=== PATIENT | female | born 1995 | race African-American/Black ===

== ENCOUNTER → 2025-01-28 10:42 | Outpatient (BNVA) | payer OTHER, SELFPAY | PROVIDERS: Visit Provider Physician Assistant Medical | DX: M24.812 Other specific joint derangements of left shoulder, not elsewhere classified (principal); S43.52XA Sprain of left acromioclavicular joint, initial encounter; S46.812A Strain of other muscles, fascia and tendons at shoulder and upper arm level, left arm, initial encounter; M54.12 Radiculopathy, cervical region; X50.0XXA Overexertion from strenuous movement or load, initial encounter | CPT/HCPCS: 73030; 99203 ==

== ENCOUNTER → 2025-01-31 10:06 | Outpatient (BNVA) | payer OTHER, SELFPAY | PROVIDERS: Visit Provider Physician Assistant Medical | DX: M24.812 Other specific joint derangements of left shoulder, not elsewhere classified (principal); S43.52XD Sprain of left acromioclavicular joint, subsequent encounter; S46.812D Strain of other muscles, fascia and tendons at shoulder and upper arm level, left arm, subsequent encounter; M54.12 Radiculopathy, cervical region; X50.0XXD Overexertion from strenuous movement or load, subsequent encounter | CPT/HCPCS: 99213 ==

== ENCOUNTER → 2025-02-05 13:22 | Outpatient (BNVA) | payer OTHER, SELFPAY | PROVIDERS: Visit Provider Physician Assistant Medical | DX: M25.812 Other specified joint disorders, left shoulder (principal); S43.52XA Sprain of left acromioclavicular joint, initial encounter; S46.812A Strain of other muscles, fascia and tendons at shoulder and upper arm level, left arm, initial encounter; M54.12 Radiculopathy, cervical region; X50.0XXA Overexertion from strenuous movement or load, initial encounter | CPT/HCPCS: 99213 ==

== ENCOUNTER → 2025-02-12 15:51 | Outpatient (BNVA) | payer OTHER, SELFPAY | PROVIDERS: Visit Provider Physician Assistant Medical | DX: M24.812 Other specific joint derangements of left shoulder, not elsewhere classified (principal); S43.52XA Sprain of left acromioclavicular joint, initial encounter; S46.812A Strain of other muscles, fascia and tendons at shoulder and upper arm level, left arm, initial encounter; M54.12 Radiculopathy, cervical region; X50.0XXA Overexertion from strenuous movement or load, initial encounter | CPT/HCPCS: 99213 ==

== ENCOUNTER → 2025-02-28 09:51 | Outpatient (BNVA) | payer OTHER, SELFPAY | PROVIDERS: Visit Provider Physician Assistant Medical | DX: M24.812 Other specific joint derangements of left shoulder, not elsewhere classified (principal); S43.82XD Sprain of other specified parts of left shoulder girdle, subsequent encounter; S46.812D Strain of other muscles, fascia and tendons at shoulder and upper arm level, left arm, subsequent encounter; X50.0XXD Overexertion from strenuous movement or load, subsequent encounter; M54.12 Radiculopathy, cervical region | CPT/HCPCS: 99213 ==

== ENCOUNTER 2025-03-20 19:49 | Outpatient (REF) | payer OTHER, SELFPAY ==
--- NOTE | ~2025-03-20 | MR_ITS ---
CLINICAL HISTORY: derangement lt ac sprain MR left shoulder without gadolinium Comparison: CR/SR - XR SHOULDER 2 OR MORE VIEWS LEFT - 01/28/25 11:48 EDT Findings: No acute fracture or pathologic bone lesion. No significant degenerative changes. No joint effusion. The rotator cuff tendons are intact. No tears of the long head of biceps tendon. Glenoid labrum is intact. IMPRESSION: Unremarkable left shoulder MRI. This document has been electronically signed by: Emmanuel Ferguson MD on 03/22/2025 18:10:49
--- OUTSIDE RECORDS SUMMARY | 2025-03-20 19:57 | XMS_ITS ---
Author Name [facility] Organization Unknown History of Medication Use Medication Directions Dispensed Refills Start Date End Date Stat us Wegovy 0.25 mg/0.5 mL subcutaneous pen injector Inject 0.25 mg every week by subcutaneous route. 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
== END 2025-03-20 19:50 | disposition home or self-care (01) ==
LOC: HO.MRI 19:49
PROVIDERS: Visit Provider Internal Medicine
DX: M24.812 Other specific joint derangements of left shoulder, not elsewhere classified (principal)
CPT/HCPCS: 73221

== ENCOUNTER → 2025-03-20 20:20 | Outpatient (BNV) | payer OTHER, SELFPAY | PROVIDERS: Visit Provider Radiology Diagnostic Radiology | DX: S43.52XD Sprain of left acromioclavicular joint, subsequent encounter (principal) | CPT/HCPCS: 73221 ==

== ENCOUNTER 2025-03-27 11:05 | Outpatient (REF) | payer OTHER, SELFPAY ==
[2025-03-27 14:08] LABS: Hematocrit 41.6 % (37.0-47.0); Hemoglobin 13.4 g/dl (12.0-16.0); Mean Corpuscular HGB Conc 32.2 g/dl (31.0-35.0); Mean Corpuscular Hemoglobin 26.2 pg (27.0-33.0); Mean Corpuscular Volume 81.3 fL (80.0-98.0); NRBC Abs Auto 0.000 X10*3/uL (0.0-0.012); NRBC Pct Auto 0.0 /100WBC (0.0-0.2); Platelet Count 246 X10*3/uL (160-400); Red Blood Count 5.12 X10*6/uL (4.20-5.50); White Blood Count 8.1 X10*3/uL (4.8-10.8)
[2025-03-27 14:40] LABS: Alanine Aminotransferase 19 U/L (0-31); Albumin Level 4.1 g/dL (3.5-5.0); Alkaline Phosphatase 64 U/L (39-117); Anion Gap 10 (12-20); Aspartate Amino Transferase 37 U/L (5-31); Blood Urea Nitrogen 19 mg/dL (9-16); Calcium 9.4 mg/dL (8.4-10.2); Carbon Dioxide 27 mmol/L (22-29); Chloride 106 mmol/L (96-108); Cholesterol 211 mg/dL (<200); Estimated Glomerular Filt Rate > 60; HDL Cholesterol 65 mg/dL (>40); Potassium 3.7 mmol/L (3.3-5.1); Sodium 139 mmol/L (135-145); Total Protein 7.5 g/dL (6.5-8.0); Triglycerides 66 mg/dL (<150)
[2025-03-27 14:42] LABS: Microalbum/Creatinine Ratio Ur 19.7 ug/mg cr (<30)
[2025-03-27 15:03] LABS: Folate 8.1 ng/mL (> or = 4.0); Vitamin B12 714 pg/mL (200-900)
== END 2025-03-27 11:06 | disposition home or self-care (01) ==
LOC: HO.WFDLDS 11:05
PROVIDERS: PCP Nurse Practitioner Family; Visit Provider Nurse Practitioner Family
DX: Z00.00 Encounter for general adult medical examination without abnormal findings (principal); Z76.89 Persons encountering health services in other specified circumstances; J45.20 Mild intermittent asthma, uncomplicated; E66.9 Obesity, unspecified; L30.9 Dermatitis, unspecified; N91.3 Primary oligomenorrhea; Z80.3 Family history of malignant neoplasm of breast; Z83.3 Family history of diabetes mellitus; Z92.89 Personal history of other medical treatment; Z68.34 Body mass index [BMI] 34.0-34.9, adult
CPT/HCPCS: 36415; 80053; 80061; 82043; 82306; 82570; 82607; 82746; 83036; 84443; 85027; 96127; 96160

== ENCOUNTER 2025-03-27 11:05 | Outpatient (AMB) | payer OTHER, SELFPAY ==
--- NOTE | 2025-03-27 11:07 | A.OFFPC_ITS ---
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 Patient is requesting a referral to a air filler. Patient has irregular periods and want to discuss about the issue. Grill Cook Required: No Is last menstrual period known: Yes Last menstrual period: 04/23/25 Allergies propylene glycol Allergy (Severe, Verified 03/27/25 11:14) Itching Medication List - Last Reviewed 03/27/25 by Raúl Alejo MA diclofenac sodium 1% 2 grams topical TID dupilumab (Dupixent) mg subcut ipratropium-albuterol 0.5 mg-3 mg(2.5 mg base)/3 mL mL inhalation Tobacco use date assessed: 03/27/25 Dental Screening Dental Screen Date: 03/27/25 Did you have a dental visit in the last 12 months?: Yes Did you have a dental problem in the last 6 months where you did not have access to dental care?: No Was dental information given to patient?: Patient has dentist HPI HPI Comments History of Present Illness Details 29 y/o F with obesity, eczema, fhx breas t (mom age 62), asthma , fhx DM, 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 No children. Denies hx of cancer in grandparents; MGF DM, PGM DM. 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 Darker blood Was on Naproxen but did not notice any improvement No chance of HOme preg test negative x 2 Not on OCP Active w/ [employer]; next appt June 2025. Advised to call [employer] to get see sooner to address the above BMI 34. Wants to meet w/ air filler Eczema: - Long-standing condition; treated with Dupixent effectively. - Under care of a senior technical program manager. Asthma: - Well-controlled using albuterol. Family History - Mother diagnosed with breast cancer tw o years ago; non-genetic. - Great aunt (maternal side) had breast cancer. - Father has diabetes. - Paternal grandmother has diabetes. 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 - Recently moved from [place] to [facility] for job purposes. - Reports stress related to shoulder inj ury and employment status. - Nutritional intake: Concerned about ov ereating; expresses desire for dietary consultation for weight management. - Not currently using contraceptives tho ug aware of risk. Health Maintenance - Flu vaccination received last week at [facility]. - Tetanus vaccination: Administered appr oximately two years ago. - Participates in using ear protection a t concerts and while flying. Review of Systems - Skin: Reports well-managed eczema. - Respiratory: Denies nocturnal asthma s ymptoms. - Reproductive: Reports irregular menstr ual cycle with nausea, vomiting, dark and spotty bleeding. - Musculoskeletal: Reports healing left shoulder injury. - Nutrition: Concern over weight gain an d dietary habits. Physical Exam General: Well developed, well nourished, in no acute distress. Appears stated age. Head: Normocephalic, atraumatic. Eyes: Pupils are equal, round and reactive to light and accommodation. Conjunctivae are clear. Scleras nonicteric bilat. Vision grossly normal. Ears: TMs clear AU, EACS WNL. Patient reports protecting ears at concerts and on planes. Nose: Patent, without discharge. Neck: No carotid bruit bilat. Supple, no adenopathy or thyromegaly. No pain or tenderness when swallowing. Breast: Edu on SBE. Patient reports previous ultrasound due to symptoms related to menstrual cycle. Lungs: Clear to auscultation bilaterally. No rales, rhonchi or wheeze noted. Good air flow in all romero. Heart: Regular rate and rhythm. No murmurs, click, rubs or gallops are noted. Abdomen: Bowel sounds present in all quadrants. The abdomen is soft, nontender, with no masses or organomegaly noted. No hernias are noted. Reports cramping but no pain. : Deferred. Reviewed recommendations for routine [employer]. Patient reports irregular menstrual cycle and previous [employer] visit. Pulses: Peripheral pulses are equal and palpable bilaterally. Extremities: No clubbing, cyanosis nor edema is noted. Neurologic: Gait and station normal. Cranial Nerves 2-12 intact. Motor strength grossly symmetrical and intact. No sensory loss. Balance normal. Skin: No rashes, ulcers, or lesions noted. Turgor is good. Skin color is good. Hair and nails are without abnormalities. Patient has a history of eczema, managed with Dupixent. Psych: Normal eye contact, affect and mood appropriate, and normal interactions. Patient is alert and appropriate to context. Reports stress related to work and health issues. Results Pending Discussion Notes During today's visit, we reviewed the patient's current management plan for eczema, which is under control with Dupixent as prescribed by her senior technical program manager. We discussed her irregular menstrual bleeding pattern, with reassurance and advice to contact her [employer] to expedite an appointment. The patient expressed concerns regarding her weight and was referred to a supervisor gluing for nutritional guidance. The patient's asthma is managed well with albuterol for emergency use. Additionally, we discussed her left shoulder injury and its impact on her work, agreeing to ongoing rehabilitation and monitoring of her recovery. Consent for A1c testing was discussed and obtained, and the patient was instructed to follow up as necessary using the patient portal for any issues or changes in symptoms. Patient was given time to ask questions. All questions were answered to their satisfaction. Assessment and Plan 1. Eczema - Continue Dupixent. 2. Abnormal Menstrual Bleeding - Contact [employer] for evaluation. 3. Asthma - Refilled albuterol; continue use. 4. Obesity - Refer to supervisor gluing. 5. Left Shoulder Injury - Monitor recovery. 6. HM labs today. UTD on vaccines Patient Instructions - Use albuterol inhaler as needed for as thma symptoms. - Continue treatment for eczema as presc ribed by your senior technical program manager. - Contact your [employer] to schedule an ear lier appointment for menstrual concerns. - Attend nutritional consultation when c ontacted by supervisor gluing. - Monitor recovery progress of shoulder injury and avoid strenuous activities. - Reach out through the patient portal f or any concerns or changes in symptoms. - RTO 1 year CPE sooner as needed. Consent Patient was informed and verbally consented to the use of an ambient scribe for clinic note documentation during this visit. An additional 20 minutes was spent addressing the problem(s) noted at todays visit. This includes time spent before the visit reviewing the chart, time spent during the visit, and time spent after the visit on documentation reviewing laboratory results, diagnostic imaging, medications, performing a medically necessary evaluation, counseling on diagnoses, care coordination, ordering appropriate tests, ordering appropriate medications, review of tests performed by other providers, reporting test results with the patient, communication with other healthcare providers. [facility] Medical History (Updated 03/27/25 @ 11:47 by Shakira Chadwick [facility]) Asthma Eczema Surgical History (Updated 03/27/25 @ 11:20 by Raúl Alejo MA) No pertinent past surgical history Family History (Updated 03/27/25 @ 11:21 by Raúl Alejo MA) Father Diabetes Paternal Grandmother Diabetes Maternal Grandfather Diabetes Mother Breast cancer Social History (Updated 03/27/25 @ 11:19 by Raúl Alejo MA) Household Members: Significant Other Both parents involved: No Caregiver staying overnight: No Housing: Apartment Are you a primary child daycare worker to a significant other at home: No Do you presently have visiting nurse or other home services: No 75 years or older and lives alone: No Alcohol intake: current Alcohol intake frequency: a few times a month Patient Tobacco Use Status: Never used Tobacco e-Cigarette/Vaping Use: Never Used Second Hand Smoke Exposure: No service: No Current occupational status: employed Current occupation: medical insurance biller assistant professor sculpture Cognitive needs: No Hearing needs: No Vision needs: No Female Reproductive History Menstrual Date of last menstrual period: 04/23/25 Questionnaire PHQ-9 Over the last 2 weeks, how often have you been bothered by any of the following problems? 1. Little interest or pleasure in doing things: not at all 2. Feeling down, depressed, or hopeless: not at all 3. Trouble falling or staying asleep, or sleeping too much: not at all 4. Feeling tired or having little energy: not at all 5. Poor appetite or overeating: not at all 6. Feeling bad about yourself - or that you are a failure or have let yourself or your family down: not at all 7. Trouble concentrating on things, such as reading the newspaper or watching television: not at all 8. Moving or speaking so slowly that other people could have noticed. Or the opposite - being so fidgety or restless that you have been moving around a lot more than usual: not at all 9. Thoughts that you would be better off or of hurting yourself in some way: not at all Total score: 0 Depression Screening Interpretation: Negative Depression Screening Done: Yes 35797 - PHQ-9 Billing: Yes Source: Developed by Drs. Tarun Ma, Blanca Milina, Jose Moreno and colleagues, with an educational lucian from [employer]. Thrive Questionnaire Date Thrive assessed: 03/27/25 I am a: Patient What is your living situation today?: I have a steady place to live Within the past 12 months, did the food you bought not last and you didn't have the money to get more?: Never true Within the past 12 months, did you worry whether your food would run out before you got money to buy more?: Never true Do you have trouble paying for medicines?: I choose not to answer this question Do you have trouble getting transportation to medical appointments?: No Do you have trouble paying your heating and electricity bill?: I choose not to answer this question Do you have trouble taking care of your child, family member or friend?: No Do you have trouble with day-to-day activities such as bathing, preparing meals, shopping, managing finances, etc.?: No Are you currently unemployed and looking for a job?: No Are you interested in more education?: I choose not to answer this question Please select the resources that you would like help with: None Currently or been in a relationship where the following occur: No concerns reported THRIVE Score: 0 AUDIT C Alcohol Use Questionnaire (AUDIT-C) 1. How often do you have a drink containing alcohol?: Monthly or less 2. How many drinks containing alcohol do you have on a typical day when you are drinking?: 1 or 2 3. How often do you have six or more drinks on one occasion?: Never Total Score: 1 Score Reviewed/Action Taken: Yes KOURTNEY-7 AMB Questionnaire KOURTNEY-7 Date KOURTNEY - 7 assessed: 03/27/25 Feeling nervous, anxious, or on edge: 1 = Several days Not being able to stop or control worryin = Not at all Worrying too much about different things: 1 = Several days Trouble relaxin = Not at all Being so restless that it is hard to sit still: 0 = Not at all Becoming easily annoyed or irritable: 0 = Not at all Feeling afraid as if something awful might happen: 0 = Not at all Total KOURTNEY-7 score (0-4 normal; 5-9 mild; 10-14 moderate; 15-21 severe): 2 Source: Developed by Drs. Tarun Ma, Blanca Milian, Jose Moreno and colleagues, with an educational lucian from [employer]. KOURTNEY-7 Assessment Billing KOURTNEY-7 Assessment Tool: KOURTNEY-7 Assessment 12275 ACT Questionnaire In the past 4 weeks, how much of the time did your asthma keep you from getting as much done at work, school or at home?: None of the time During the past 4 weeks, how often have you had shortness of breath?: Not at all During the past 4 weeks, how often did your asthma symptoms wake you up at night or earlier than usual in the morning?: Not at all During the past 4 weeks, how often have you had to use your rescue inhaler or nebulizer medication?: Not at all How would you rate your asthma control during the past 4 weeks?: Completely controlled ACT Interpretation: Negative Score: 25 Physical exam (Primary Care) Vital Signs: Last Vital Signs Temp 97.8 F 03/27/25 11:16 Pulse 78 03/27/25 11:16 Resp 12 03/27/25 11:16 BP 107/67 03/27/25 11:16 Pulse Ox 98 03/27/25 11:16 Oxygen Delivery Method Room Air 03/27/25 11:16 BMI result Body Mass Index 34.0 Tobacco/Smoking Status: Tobacco use Status Tobacco use date assessed 03/27/25 03/27/25 11:10 Patient Tobacco Use Status Never used Tobacco 03/27/25 11:19 e-Cigarette/Vaping Use Never Used 03/27/25 11:19 PHQ-9: PHQ-9 Score PHQ-9: Total score 0 03/27/25 11:10 Depression Screening Interpretation: Negative Thrive Assessment: Date of Thrive Assessment Date Thrive assessed 03/27/25 03/27/25 11:10 Currently or been in a relationship where the following occur: No concerns reported Coding Level of Care Code New Pt Level 3 (59317) New Pt Prev Care 18-39yr(02033 Diagnoses Encounter to establish care with new provider Z76.89 Mild intermittent asthma in adult without complication J45.20 Obesity (BMI 30-39.9) E66.9 Eczema L30.9 Family history of breast cancer Z80.3 Family history of diabetes mellitus Z83.3 History of Papanicolaou smear of cervix Z92.89 Laboratory exam ordered as part of routine general medical examination Z00.00 Encounter for general adult medical examination without abnormal findings Z00.00 Primary oligomenorrhea N91.3 Oligomenorrhea type: primary Additional Codes KOURTNEY-7 Assessment Billing - KOURTNEY-7 Assessment Tool: KOURTNEY-7 Assessment 37159 ([id number]) PHQ-9 - 93241 - PHQ-9 Billing: Yes ([id number]) Asthma Control Questionnaire - ACT Interpretation: Negative ([id number]) Assessment & Plan Assessment & Plan (1) Encounter to establish care with new provider: Code(s): Z76.89 - Persons encountering health services in other specified circumstances (2) Mild intermittent asthma in adult without complication: Code(s): J45.20 - Mild intermittent asthma, uncomplicated Category: Medical (3) Obesity (BMI 30-39.9): Code(s): E66.9 - Obesity, unspecified Category: Medical (4) Eczema: Code(s): L30.9 - Dermatitis, unspecified Category: Medical (5) Family history of breast cancer: Comment: Mom and Maternal aunt Code(s): Z80.3 - Family history of malignant neoplasm of breast Category: Medical (6) Family history of diabetes mellitus: Code(s): Z83.3 - Family history of diabetes mellitus Category: Medical (7) History of Papanicolaou smear of cervix: Onset Date: ~2023 Code(s): Z92.89 - Personal history of other medical treatment Category: Medical (8) Laboratory exam ordered as part of routine general medical examination: Code(s): Z00.00 - Encounter for general adult medical examination without abnormal findings Category: Medical (9) Encounter for general adult medical examination without abnormal findings: Onset Date: ~03/27/25 Code(s): Z00.00 - Encounter for general adult medical examination without abnormal findings Category: Medical (10) Oligomenorrhea: Code(s): N91.5 - Oligomenorrhea, unspecified Category: Medical Qualifiers: Oligomenorrhea type: primary Qualified Code(s): N91.3 - Primary oligomenorrhea Plan . Orders: Orders Microalbumin, Random (w Creat) Today Z00.00 - Encounter for general adult medical examination without abnormal findings TSH reflex Free T4 Today Z00.00 - Encounter for general adult medical examination without abnormal findings Vitamin B12 and Folate Today Z00.00 - Encounter for general adult medical examination without abnormal findings Vitamin D 25-OH Total Today Z00.00 - Encounter for general adult medical examination without abnormal findings Complete Blood Count no Diff Today Z00.00 - Encounter for general adult medical examination without abnormal findings Comprehensive Met. Panel Today Z00.00 - Encounter for general adult medical examination without abnormal findings Hemoglobin A1c Today Z00.00 - Encounter for general adult medical examination without abnormal findings Lipid Panel Today Z00.00 - Encounter for general adult medical examination without abnormal findings Referrals Casket Liner Nutrition Referral E66.9 - Obesity, unspecified Medications: New albuterol sulfate 90 mcg/actuation 2 puffs inhalation Q4-6H PRN 8.5 grams 0RF shortness of breath or wheezing 30 days Patient Instructions: Walk-In Care (Urgent Care): We Make it Easy Walk-in for urgent medical issues such as: ? Seasonal Allergies ? Insect Bites ? Cough ? Diarrhea ? Acute Asthma Attacks ? Back, Knee or Joint Pain ? Ear Infection ? Fever without a Rash ? Headaches ? Nausea ? [place] [facility], Rash or Skin Irritation ? Sore Throat ? Sports Physicals ? Vomiting Most insurances are accepted. Patients do not need to be part of the [facility] to seek care at the walk-in clinic. Locations [address], [place] Open Tuesday through Tuesday 8am-5pm *Hours may vary due to staffing availability. To confirm Walk-In Care hours please call. [facility] [address], [place] [address] ? [phone] [facility] Walk-In Care in [place] provides services to ages 18 and over. Open Tuesday-Tuesday: 7 a.m. to 5 p.m. and Tuesday: 9 a.m. to 3 p.m.* *Hours may vary due to staffing availability. To confirm Walk-In Care hours in [place], please call [phone]. [address] [place] [address] ? [phone] [facility] Walk-In Care in [place] provides services to ages 12 and over. Open Tuesday-Tuesday: 8 a.m. to 5 p.m. Hours may vary due to staffing availability. To confirm Walk-In Care hours in [place], please call [phone]. LABORATORY SERVICES: [facility] ? Primary Location [address] [place] [address] Tuesday through Tuesday 6:00 AM ? 5:00 PM Tuesday 7:00 AM ? 11:00 AM* [phone] The [facility] is centrally located near the front entrance of the [facility] for easy outpatient access. Convenient parking is provided for outpatients. *Hours may vary due to staffing availability. To confirm Laboratory hours for any location, please call [phone]. Offsite Location For your convenience, we offer offsite laboratory draw stations at the following locations: [address] [place] [address] ? [address], [address] Tuesday through Tuesday 7:30 AM ? 1:00 PM* [phone] *Hours may vary due to staffing availability. To confirm Laboratory hours for any location, please call [phone]. [place] ? [address] Tuesday through Tuesday 6:00 AM ? 3:30 PM* Tuesday 6:30 AM ? 3 PM* [phone] *Hours may vary due to staffing availability. To confirm Laboratory hours for any location, please call [phone] [place] [address] Tuesday through Tuesday 7:30 AM ? 4:00 PM* [phone] *Hours may vary due to staffing availability. To confirm Laboratory hours for any location, please call [phone] [place] [address] Tuesday through 9:00 AM ? 4:00 PM* *Hours may vary due to staffing availability. To confirm Laboratory hours for any location, please call [phone]. Appointments are not necessary. Walk-ins are welcome. Like all the departments throughout the [facility], our Lab undergoes frequent reviews to ensure the quality and accuracy of test results, and our staff takes special pride in its status as a nationally accredited facility. Patient Portal: [facility] ONE PATIENT. ONE RECORD. BETTER CARE. [facility] has a fully integrated, cutting- edge mobile electronic health information system that has revolutionized the way we care for our patients and manage our organization. This system improves communication and coordination enabling us to provide safe, higher-quality care, and an overall positive experience for staff and patients. Our first priority, as always, is to deliver the highest quality care possible. The system is running in the background supporting that priority. This portal is for all [facility] and [facility] services and practices. If you are experiencing any technical difficulties with enrolling or logging into the Patient Portal please complete the [facility] Patient Portal Technical Support Form. [facility] now offers a new secure on-line interactive tool for patients to review their health information ? ?Patient Portal. This interactive web portal will enable patients and their families to take an active role in their care by providing easy, secure access to their health information via the internet. The Patient Portal provides patients with instant access to their health inform ation, including laboratory results, medications, allergies, demographic information, visit history, and more. In addition to managing their own care, parents and health care proxies with authorized consent will appreciate the ability to access the records of those individuals for whom they provide care. Please note: if you wish to gain access (Proxy) to another patient?s portal, you will be required to come to the Medical Records Department in person at [facility]. Both the patient giving proxy access and the proxy will need to provide photo identification and complete the appropriate authorization. The Patient Portal also allows track their appointments online. The [facility] Patient Portal also saves patients time by allowing them to submit updates to their demographic and contact information prior to their visits. Portal email notifications will also alert patients to any new activity on their portal, such as test results and new appointments. In order to initially enroll in the [facility] Patient Portal, you will need to enter some required information including the following: * your [facility] Medical Record number * your personal home email address * name * date of Please note: In order to enroll in the [facility] Patient Portal, we need to have your email address on file in your electronic medical record. ?The email address needs to be specific for one person (yourself) in order for your Portal enrollment to be successful. ?You can update your email address in person with our Registration staff when you are registering for a hospital visit. ?Otherwise, you will need to come to the Health Information Management (Medical Records) Department at [facility]. ?We are open from Tuesday ? Tuesday from 7:30 a.m. ? 4:30 p.m. ?You will be required to present a photo id. Once you have successfully enrolled in the Patient Portal, you will receive a one-time user id and password for the Portal, sent to your email address. ?This will allow you to log into the Patient Portal within 99 hrs and reset your own logon id and password, and define personal security questions. ?Once your permanent login and password have been set, you can log into the [facility] Patient Portal at any time via the blue button above or from the Portal Logon button on any page of the [facility] website. [facility] and [facility] encourage all of our patients to enroll in Patient Portal as it presents a valuable opportunity for patients and their families to actively participate in their care and stay healthy Welcome to [facility]. ?We look forward to working with you. Health screenings for women You should visit your health care provider from time to time, even if you are healthy. The purpose of these visits is to: Screen for medical issues Assess your risk for future medical problems Encourage a healthy lifestyle Update vaccinations and other preventive care services Help you get to know your provider in case of an illness Information Even if you feel fine, you should still see your provider for regular checkups. These visits can help you avoid problems in the future. For example, the only way to find out if you have high blood pressure is to have it checked regularly. High blood sugar and high cholesterol levels also may not have any symptoms in the early stages. A simple blood test can check for these conditions. There are specific times when you should see your provider or receive specific health screenings. The [place] Preventive Services Task Force publishes a list of recommended screenings. Below are screening guidelines for women ages 18 to 39. BLOOD PRESSURE SCREENING Your blood pressure should be checked at least once every 3 to 5 years if: Your blood pressure is in the normal range (top number less than 120 mm Hg and bottom number less than 80 mm Hg) You don't have risk factors for high blood pressure Ask your provider if you need your blood pressure checked more often if: The top number is 120 to 129 mm Hg or the bottom number is 70 to 79 mm Hg You have diabetes, heart disease, kidney problems, are overweight, or have certain other health conditions You have a first-degree relative with high blood pressure You are Black You had high blood pressure during a If the top number is 130 mm Hg or greater or the bottom number is 80 mm Hg or greater, this is considered stage 1 hypertension. Schedule an appointment with your provider to learn how you can reduce your blood pressure. Watch for blood pressure screenings in your area. Ask your provider if you can stop in to have your blood pressure checked. BREAST CANCER SCREENING Experts do not agree about the benefits of breast self-exams in finding breast cancer or saving lives. Talk to your provider about what is best for you. A screening mammogram is not recommended for most women under age 40. Your provider may discuss and recommend mammograms, MRI scans, or ultrasounds if you have an increased risk for breast cancer, such as: A mother or sister who had breast cancer at a young age (most often starting screening earlier than the age the close relative was diagnosed) You carry a high-risk genetic marker CERVICAL CANCER SCREENING Cervical cancer screening should start at age 21 years unless your provider advises otherwise. After the first test: Women ages 21 through 29 should have a Pap test every 3 years. Exoprts do not agree on whether HPV testing is recommended for this age group. Women ages 30 through 65 should be screened with either a Pap test every 3 years or the HPV test every 5 years or both tests every 5 years (called cotesting ). Women who have been treated for precancer (cervical dysplasia) should continue to have Pap tests for 20 years after treatment or until age 65, whichever is lo nger. If you have had your uterus and cervix removed (total hysterectomy), and you have not been diagnosed with cervical cancer or precancer (high grade cervical neoplasia), you do not need cervical cancer screening. CHOLESTEROL SCREENING Cholesterol screening should begin at: Age 45 for women with no known risk factors for coronary heart disease Age 20 for women with known risk factors for coronary heart disease Repeat cholesterol screening should take place: Every 5 years for women with normal cholesterol levels More often if changes occur in lifestyle (including weight gain and diet) More often if you have diabetes, heart disease, kidney problems, or certain other conditions DIABETES SCREENING You should be screened for diabetes starting at age 35 and then repeated every 3 years if you have no risk factors for diabetes. Screening may need to start earlier and be repeated more often if you have other risk factors for diabetes, such as: You have a first degree relative with diabetes. You are overweight or have obesity. You have high blood pressure, prediabetes, or a history of heart disease. Screening for diabetes should be done if you are planning to become and you are overweight and have other risk factors such as high blood pressure. DENTAL EXAM Go to the dentist once or twice every year for an exam and cleaning. Your dentist will evaluate if you need more frequent visits. EYE EXAM Have an eye exam every 5 to 10 years before age 40. If you have vision problems, have an eye exam every 2 years or more often if recommended by your provider. You should have an eye exam that includes an examination of your retina (back of your eye) at least every year if you have diabetes. IMMUNIZATIONS Commonly needed vaccines include: Flu shot: get one every year. COVID-19 vaccine: ask your provider what is best for you. Tetanus-diphtheria and acellular pertussis (Tdap) vaccine: have one at or after age 19 as one of your tetanus-diphtheria vaccines if you did not receive it as an adolescent. Tetanus-diphtheria: have a booster (or Tdap) every 10 years. Varicella vaccine: receive 2 doses if you never had chickenpox or the varicella vaccine. Hepatitis B vaccine: receive 2, 3, or 4 doses, depending on your exact circumstances. Measles, mumps, and rubella (MMR) vaccine: receive 1 to 2 doses if you are not already immune to MMR. Your provider can tell you if you are immune. Ask your provider about the human papillomavirus (HPV) vaccine if: You have not received the HPV vaccine in the past You have not completed the full vaccine series (you should catch up on this shot) Ask your provider if you should receive other immunizations if you have certain health problems that increase your risk for some diseases such as pneumonia. INFECTIOUS DISEASE SCREENING Women who are sexually active should be screened for chlamydia and gonorrhea up until age 25. Women 25 years and older should be screened for chlamydia and gonorrhea if at high risk. Screening for hepatitis C: All adults ages 18 to 79 should get a one-time test for hepatitis C. people should be screened at every . Screening for human immunodeficiency virus (HIV): All people ages 15 to 65 should get a one-time test for HIV. Depending on your lifestyle and medical history, you may also need to be screened for infections such as syphilis and HIV, as well as other infections. PHYSICAL EXAM All adults should visit their provider from time to time, even if they are healthy. The purpose of these visits is to: Screen for disease Assess your risk of future medical problems Encourage a healthy lifestyle Update your vaccinations and other preventive care services Maintain a relationship with a provider in case of an illness Your height, weight, and BMI should be checked at every exam. During your exam, your provider may ask you about: Depression and anxiety Diet and exercise Alcohol and tobacco use Safety issues, such as using seat belts, smoke detectors, and intimate partner violence Your medicines and risk for interactions SKIN SELF-EXAM Your provider may check your skin for signs of skin cancer, especially if you're at high risk, such as if you: Have had skin cancer before Have close relatives with skin cancer Have a weakened immune system OTHER SCREENING Talk with your provider about colon cancer screening if you have a strong family history of colon cancer or polyps, or if you have had inflammatory bowel disease or polyps yourself. Routine bone density screening of women under 40 is not recommended.
[2025-03-27 11:16] VITALS: BP 107/67; PULSE 78; RESP 12; TEMP 36.6; O2SAT 98; BMI 34.0
== END 2025-03-27 11:46 | disposition home or self-care (01) ==
LOC: HO.HMCFM 11:06
PROVIDERS: PCP Nurse Practitioner Family; Visit Provider Nurse Practitioner Family
DX: Z00.00 Encounter for general adult medical examination without abnormal findings (principal); J45.20 Mild intermittent asthma, uncomplicated; L30.9 Dermatitis, unspecified; E66.9 Obesity, unspecified; Z68.34 Body mass index [BMI] 34.0-34.9, adult; N91.3 Primary oligomenorrhea; Z80.3 Family history of malignant neoplasm of breast; Z83.3 Family history of diabetes mellitus; Z92.89 Personal history of other medical treatment

== ENCOUNTER 2025-06-05 14:00 | Outpatient (AMB) | payer OTHER, SELFPAY ==
--- NOTE | 2025-06-05 14:02 | A.OFFVIS_ITS ---
VS Expanded 06/05/25 14:04 06/05/25 14:18 Height 5 ft 4 in 5 ft 4 in Weight 201 lb 201 lb BMI 34.5 34.5 Intake Visit Reasons: Obesity, unspecified Allergies propylene glycol Allergy (Severe, Verified 03/27/25 11:14) Itching Nutrition Presentation Details: Pt presents for MNT for obesity 5:45 am 2 eggs white /applesauce or cereal sugary/almond milk, oatmeal packet/water 9 am : rice/chicken/veggies , water 1: 30 pm granola bar or fruit or pockpot 6: pm chicken/rice/veggies or pasta /veggies water food frequency fish: 1/wk fruit/d: 1-2/d dairy: alternative vegetables: 3/d sweetened beverages: 1-2/d physical active: Sedentary etoh: occ 1-2 /d BS Monitoring Most Recent Diabetes Results: Microalb/Creat Ratio, (<30) 19.7 ug/mg cr 03/27/25 Cholesterol, (<200) 211 mg/dL H 03/27/25 HDL Cholesterol, (>40) 65 mg/dL 03/27/25 Triglycerides, (<150) 66 mg/dL 03/27/25 Creatinine, (0.5-1.4) 0.80 mg/dL 03/27/25 BUN, (9-16) 19 mg/dL H 03/27/25 Sodium, (135-145) 139 mmol/L 03/27/25 Potassium, (3.3-5.1) 3.7 mmol/L 03/27/25 Chloride, (96-108) 106 mmol/L 03/27/25 Carbon Dioxide, (22-29) 27 mmol/L 03/27/25 Calcium, (8.4-10.2) 9.4 mg/dL 03/27/25 AST, (5-31) 37 U/L H 03/27/25 ALT, (0-31) 19 U/L 03/27/25 Total Protein, (6.5-8.0) 7.5 g/dL 03/27/25 Albumin, (3.5-5.0) 4.1 g/dL 03/27/25 QES-Dztyhbn-Nk.Jeor Equation Height: 5 ft 4 in Weight: 201 lb Resting Metabolic Rate: 1628.05 Calculated Activity Level: Sedentary Calories Needed to Maintain Weight: 1953.66 Diagnosis Nutrition problem #1: excessive energy intake As related to (etiology) #1: diagnosis As evidenced by (sign/symptom) #1: high BMI REPLACED BY [facility] Medical History (Updated 03/27/25 @ 14:46 by Shakira Chadwick [facility]) Eczema Asthma Surgical History (Updated 03/27/25 @ 11:20 by Raúl Alejo MA) No pertinent past surgical history Family History (Updated 03/27/25 @ 11:21 by Raúl Alejo MA) Father Diabetes Paternal Grandmother Diabetes Maternal Grandfather Diabetes Mother Breast cancer Social History (Updated 03/27/25 @ 11:19 by Raúl Alejo MA) Household Members: Significant Other Both parents involved: No Caregiver staying overnight: No Housing: Apartment Are you a primary child care coordinator to a significant other at home: No Do you presently have visiting nurse or other home services: No 75 years or older and lives alone: No Alcohol intake: current Alcohol intake frequency: a few times a month Patient Tobacco Use Status: Never used Tobacco e-Cigarette/Vaping Use: Never Used Second Hand Smoke Exposure: No service: No Current occupational status: employed 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 Cognitive needs: No Hearing needs: No Vision needs: No Assessment & Plan Assessment & Plan (1) Obesity (BMI 30-39.9): Code(s): E66.9 - Obesity, unspecified Category: Medical Plan: current wt: 91kg (June 20 ) est kcal needs as per MSJ: 2000 est protein needs as per 1 g/kg BW: 90 est fluid needs as per 30 ml/kg BW: 2700 Recommended fiber > 12 g /day and gradually increase up to 25-28 g /day or as tolerated Nutrition topics discussed : Reviewed (R), Pt verbalized understanding (V) , not applicable (N/A) R, : Healthy Plate Method Concept: R, : Carbohydrates: food sources of carbohydrates, relationship of car bohydrates to blood glucose, fatty liver GI health. Recommended total amount of carbohydrates per meals and snack. Differences between simple carbohydrates and complex carbohydrates R, V, N/A: Lean protein foods including vegan , vegetarian sources of protein. Benefits of protein (including but not limited to healing, nutritional value , benefits in weight loss, glucose control R, V, N/A: Fats : Source of fats, benefits of fats. Difference between saturated and unsaturated fats. Saturated fats and its contribution to inflammation R, V, N/A: Fiber: food sources and role of fiber in the diet (including but not limited to its role as a prebiotic, benefits in constipation, role in IBS , role in glucose control and cholesterol level) R, V, N/A: Hydration: role of hydration and prevention of dehydration or over hydration. Foods and water content. R, V, N/A: Vitamins and Minerals in foods and supplements R, V, N/A: Interpreting food labels, including serving size, macronutrients, vitamins, minerals, allergens, ingredient list , % daily value Patient Instructions: Reduce on empty calorie snacks, drink water with or herb or fruit flavor without sugar added Make a routine of having 3 meals and 2 snacks per stay, snacks consisting of a fruit Engage in physical activity 1 hour per day Coding Level of Care Code Nutr Indiv Intake (54666) Diagnoses Obesity (BMI 30-39.9) E66.9 Time Spent (min) 30
[2025-06-05 14:04] VITALS: BMI 34.5
--- OUTSIDE RECORDS SUMMARY | 2025-06-05 21:50 | XMS_ITS | Data Portability ---
Author Organization [place] - [facility], [facility] Address [id number] [place] [address] Assessment Encounter Date Assessment Date Assessment LastModified by Organization Details LastModified Time 07/02/2024 07/02/2024 dupixent Not available 11/2024 17:00:06 Plan of Treatment Reminders Order Date Submit Date Provider Last Modified By Organization Details Last Modified Time Details Appointments None recorded. Lab pap, IG + reflex HPV 2024 025 [facility], [address] [place] [address], [id number] 5 11:16:50 HbA1c (hemoglobin A1c), blood 2023 024 [facility], [address] [place] [address], [id number] 4 22:12:43 insulin, fasting, serum 2023 024 [facility], [address] [place] [address], 4 22:12:42 CMP, serum or plasma 2023 024 [facility], [address] [place] [address], [id number] 4 22:12:40 CBC w/ auto diff 2023 024 [facility], [address] [place] [address], [id number] 4 22:12:41 TSH + free T4, serum 2023 024 [facility], [address] [place], [address] 4 22:12:41 lipid panel, serum 2023 024 [facility], [address] [place], [address] 4 22:12:39 urinalysis, dipstick 2023 024 In-Office Order, Internal Use Only DO Not Attach Compendium DO Not Attach Compendium, Do Not Delete/merge, [id number] 13:35:26 Referral None recorded. Procedures None recorded. Surgeries None recorded. Imaging None recorded. Medication Orders Wegovy 0.25 mg/0.5 mL subcutaneou s pen injector 2024 025 [id number], [address] [place] [address], [address], 13:51:04 Patient TargetsNo targets recorded. Patient Instructions Encounter Date Encounter Id Patient Instructions Last Modified By Organization Details Last Modified Time 05/02/2024 [id number] tips to help you stay healthy Not available 05/02/2024 13:35:26 heavy menstrual periods: care instructions Not available 05/02/2024 13:35:26 Reason for Referral None Reported. Results Created Date Observation Date Name Description Value Unit Range Abnormal Flag Note LastModifiedBy Organization Detail LastModifiedTime 05/02/2005/02/2024 urina lysis , dipst ick Interpretati on negati ve Not Available In-Office Order Internal Use Only DO Not Attach Compendium DO Not Attach Compendium, Do Not Delete/merge, [id number] 05/02/2024 13:21:24 05/02/20 24 05/02/2024 urina lysis , dipst ick Leukocytes Negati ve Not Available In-Office Order Internal Use Only DO Not Attach Compendium DO Not Attach Compendium, Do Not Delete/merge, [id number] 05/02/2024 13:21:24 05/02/20 24 05/02/2024 urina lysis , dipst ick Nitrite negati ve Not Available In-Office Order Internal Use Only DO Not Attach Compendium DO Not Attach Compendium, Do Not Delete/merge, 05/02/2024 13:21:24 05/02/20 24 05/02/2024 urina lysis , dipst ick Urobilinogen Normal : 0.2 mg/dl Not Available In-Office Order Internal Use Only DO Not Attach Compendium DO Not Attach Compendium, Do Not Delete/merge, 05/02/2024 13:21:24 05/02/20 24 05/02/2024 urina lysis , dipst ick Protein Negati ve Not Available In-Office Order Internal Use Only DO Not Attach Compendium DO Not Attach Compendium, Do Not Delete/merge, 05/02/2024 13:21:24 05/02/20 24 05/02/2024 urina lysis , dipst ick pH 6.0 Not Available In-Office Order Internal Use Only DO Not Attach Compendium DO Not Attach Compendium, Do Not Delete/merge, 05/02/2024 13:21:24 05/02/20 24 05/02/2024 urina lysis , dipst ick Blood Non-He molyze d: Modera te Not Available In-Office Order Internal Use Only DO Not Attach Compendium DO Not Attach Compendium, Do Not Delete/merge, 05/02/2024 13:21:24 05/02/20 24 05/02/2024 urina lysis , dipst ick Specific [place] 1.010 Not Available In-Off ice Order Internal Use Only DO Not Attach Compendium DO Not Attach Compendium, Do Not Delete/merge, 05/02/2024 13:21:24 05/02/20 24 05/02/2024 urina lysis , dipst ick Ketone Negati ve Not Available In-Office Order Internal Use Only DO Not Attach Compendium DO Not Attach Compendium, Do Not Delete/merge, 05/02/2024 13:21:24 05/02/20 24 05/02/2024 urina lysis , dipst ick Bilirubin Negati ve Not Available In-Office Order Internal Use Only DO Not Attach Compendium DO Not Attach Compendium, Do Not Delete/merge, 05/02/2024 13:21:24 05/02/20 24 05/02/2024 urina lysis , dipst ick Glucose Negati ve Not Available In-Office Order Internal Use Only DO Not Attach Compendium DO Not Attach Compendium, Do Not Delete/merge, [id number] 05/02/2024 13:21:24 05/02/20 24 05/02/2024 urina lysis , dipst ick Appearance Clear Not Available In-Offi ce Order Internal Use Only DO Not Attach Compendium DO Not Attach Compendium, Do Not Delete/merge, [id number] 05/02/2024 13:21:24 05/02/20 24 05/02/2024 urina lysis , dipst ick Color Yellow Not Available In-Office Order Internal Use Only DO Not Attach Compendium DO Not Attach Compendium, Do Not Delete/merge, [id number] 05/02/2024 13:21:24 05/30/20 24 05/30/2024 LIPID PANEL , STAND DINORA cholesterol, total 198 mg/dL <200 normal Not Available [employer] [facility] [address], [address], 05/30/2024 22:12:39 05/30/20 24 05/30/2024 LIPID PANEL , STAND DINORA HDL cholesterol 71 mg/dL > or = 50 normal Not Available [employer] [facility] [address], [address], 05/30/2024 22:12:39 05/30/20 24 05/30/2024 LIPID PANEL , STAND DINORA triglyceride s 59 mg/dL <150 normal Not Available [facility] [address], [address], 05/30/2024 22:12:39 05/30/20 24 05/30/2024 LIPID PANEL , STAND DINORA LDL-choleste rol 113 mg/dL _(sebastian c) high Refer ence range : <100 Katie able range <100 mg/dL for prima ry preve ntion ; <70 mg/dL for patie nts with CHD or diabe tic patie nts with > or = 2 CHD risk facto rs. LDL-C is now calcu lated using the Linda n-Hop kins timothy pillai, which is a valid ated novel barbara ching jordan r accur acy than the Fried harrison cerdaat ion in the estim ation of LDL-C . Linda pillai SS et al. KATELIN. 2013; 310(1 9): 2061- 2068 (http ://ed ucati on.Qu estDi Futurefleets. com/f aq/FA Q164) Not Available [facility] [place] [facility] [address], [place], [address], 05/30/2024 22:12:39 05/30/20 24 05/30/2024 LIPID PANEL , STAND DINORA chol/HDLC ratio 2.8 (calc ) <5.0 normal Not Available [facility] [place] [facility] [address], [place], [address], 05/30/2024 22:12:39 05/30/20 24 05/30/2024 LIPID PANEL , STAND DINORA non HDL cholesterol 127 mg/dL _(sebastian c) <130 normal For patie nts with diabe jennifer plus 1 major ASCVD risk facto r, treat ing to a non-H DL-C goal of <100 mg/dL (LDL- C of <70 mg/dL ) is consi dered a thera peuti c optio n. Not Available [facility] [place] [facility] [address], [place], [address], 05/30/2024 22:12:39 05/30/20 24 05/30/2024 COMPR EHENS DEMARCUS METAB OLIC PANEL glucose 101 mg/dL 65-99 high Fasti ng refer ence inter haim For someo ne witho ut known diabe jennifer, a gluco se value betwe en 100 and 125 mg/dL is consi stent with predi abete s and shoul d be confi rmed with a follo w-up test. Not Available [facility] [place] [facility] [address] [place], [place], [address], 05/30/2024 22:12:40 05/30/20 24 05/30/2024 COMPR EHENS DEMARCUS METAB OLIC PANEL urea nitrogen (BUN) 13 mg/dL 7-25 normal Not Available [facility] [address], [place], [address], 05/30/2024 22:12:40 05/30/20 24 05/30/2024 COMPR EHENS DEMARCUS METAB OLIC PANEL creatinine 0.90 mg/dL 0.50-0 .96 normal Not Available [facility] [address], [place], [address], 05/30/2024 22:12:40 05/30/20 24 05/30/2024 COMPR EHENS DEMARCUS METAB OLIC PANEL eGFR 90 mL/mi n/1.7 3m2 > or = 60 normal Not Available [facility] [address], [place], [address], 05/30/2024 22:12:40 05/30/20 24 05/30/2024 COMPR EHENS DEMARCUS METAB OLIC PANEL BUN/creatini ne ratio SEE NOTE: (calc ) 6-22 Not Repor ericka: BUN and Creat inine are withi n refer ence range . Not Available [facility] [address] [place], [place], [address], 05/30/2024 22:12:40 05/30/20 24 05/30/2024 COMPR EHENS DEMARCUS METAB OLIC PANEL sodium 136 mmol/ L 135-14 6 normal Not Available [facility] [address], [place], [address], 05/30/2024 22:12:40 05/30/20 24 05/30/2024 COMPR EHENS DEMARCUS METAB OLIC PANEL potassium 4.0 mmol/ L 3.5-5. [address] [facility] [place] [facility] [address], [place], [address], 05/30/2024 22:12:40 05/30/20 24 05/30/2024 COMPR EHENS DEMARCUS METAB OLIC PANEL chloride 106 mmol/ L 98-[address] [facility] [place] [facility] [address], [place], [address], 05/30/2024 22:12:40 05/30/20 24 05/30/2024 COMPR EHENS DEMARCUS METAB OLIC PANEL carbon dioxide 24 mmol/ L 20-[address] [facility] [place] [facility] [address], [place], [address], 05/30/2024 22:12:40 05/30/20 24 05/30/2024 COMPR EHENS DEMARCUS METAB OLIC PANEL calcium 8.9 mg/dL 8.6-10 .[address] [facility] [place] [facility] [address], [place], [address], 05/30/2024 22:12:40 05/30/20 24 05/30/2024 COMPR EHENS DEMARCUS METAB OLIC PANEL protein, total 7.3 g/dL 6.1-8. 1 normal Not Available [facility] [address], [place], [address], 05/30/2024 22:12:40 05/30/20 24 05/30/2024 COMPR EHENS DEMARCUS METAB OLIC PANEL albumin 4.0 g/dL 3.6-5. 1 normal Not Available [facility] [address], [place], [address], 05/30/2024 22:12:40 05/30/20 24 05/30/2024 COMPR EHENS DEMARCUS METAB OLIC PANEL globulin 3.3 g/dL_ (calc ) 1.9-3. 7 normal Not Available [facility] [address], [place], [address], 05/30/2024 22:12:40 05/30/20 24 05/30/2024 COMPR EHENS DEMARCUS METAB OLIC PANEL albumin/glob ulin ratio 1.2 (calc ) 1.0-2. 5 normal Not Available [facility] [address], [place], [address], 05/30/2024 22:12:40 05/30/20 24 05/30/2024 COMPR EHENS DEMARCUS METAB OLIC PANEL bilirubin, total 0.5 mg/dL 0.2-1. 2 normal Not Available [facility] [address], [place], [address], 05/30/2024 22:12:40 05/30/20 24 05/30/2024 COMPR EHENS DEMARCUS METAB OLIC PANEL alkaline phosphatase 58 U/L 31-125 normal Not Available [facility] [employer] [facility] [address], [place], [address], 05/30/2024 22:12:40 05/30/20 24 05/30/2024 COMPR EHENS DEMARCUS METAB OLIC PANEL AST 24 U/L 10-30 normal Not Available [facility] [address], [place], [address], 05/30/2024 22:12:40 05/30/20 24 05/30/2024 COMPR EHENS DEMARCUS METAB OLIC PANEL ALT 21 U/L 6-29 normal Not Available [facility] [address], [place], [address], 05/30/2024 22:12:40 05/30/20 24 05/30/2024 CBC (INCL UDES DIFF/ PLT) white blood cell count 5.3 thous and/u L 3.8-10 .8 normal Not Available [facility] [place] [facility] [address], [place], [address], 05/30/2024 22:12:41 05/30/20 24 05/30/2024 CBC (INCL UDES DIFF/ PLT) red blood cell count 5.12 janice on/uL 3.80-5 .10 high Not Available [facility] [place] [facility] [address], [place], [address], 05/30/2024 22:12:41 05/30/20 24 05/30/2024 CBC (INCL UDES DIFF/ PLT) hemoglobin 13.7 g/dL 11.7-1 5.5 normal Not Available [facility] [place] [facility] [address], [place], [address], 05/30/2024 22:12:41 05/30/20 24 05/30/2024 CBC (INCL UDES DIFF/ PLT) hematocrit 42.9 % 35.0-4 5.0 normal Not Available [facility] [place] [facility] [address], [place], [address], 05/30/2024 22:12:41 05/30/20 24 05/30/2024 CBC (INCL UDES DIFF/ PLT) MCV 83.8 fL 80.0-1 00.0 normal Not Available [facility] [place] [facility] [address], [place], [address], 05/30/2024 22:12:41 05/30/20 24 05/30/2024 CBC (INCL UDES DIFF/ PLT) MCH 26.8 pg 27.0-3 3.0 low Not Available [facility] [place] [facility] [address], [place], [address], 05/30/2024 22:12:41 05/30/20 24 05/30/2024 CBC (INCL UDES DIFF/ PLT) MCHC 31.9 g/dL 32.0-3 6.0 low For adult s, a sligh t decre ase in the calcu lated MCHC value (in the range of 30 to 32 g/dL) is most likel y not clini elke signi ficcarlos alberto t; simin er, it shoul d be inter prete d with cauti on in corre [facility] n with other red cell raina eters and the patie nt's clini sebastian condi tion. Not Available [facility] [place] [facility] [address], [place], [address], 05/30/2024 22:12:41 05/30/20 24 05/30/2024 CBC (INCL UDES DIFF/ PLT) RDW 12.7 % 11.0-1 5.0 normal Not Available [facility] [place] [facility] [address], [place], [address], 05/30/2024 22:12:41 05/30/20 24 05/30/2024 CBC (INCL UDES DIFF/ PLT) platelet count 247 thous and/u L 140-40 0 normal Not Available [facility] [place] [facility] [address], [place], [address], 05/30/2024 22:12:41 05/30/20 24 05/30/2024 CBC (INCL UDES DIFF/ PLT) MPV 11.0 fL 7.5-12 .5 normal Not Available [facility] [place] [facility] [address], [place], [address], 05/30/2024 22:12:41 05/30/20 24 05/30/2024 CBC (INCL UDES DIFF/ PLT) absolute neutrophils 3318 cells /uL 1500-7 800 normal Not Available [facility] [place] [facility] [address], [place], [address], 05/30/2024 22:12:41 05/30/20 24 05/30/2024 CBC (INCL UDES DIFF/ PLT) absolute lymphocytes 1479 cells /uL 850-39 00 normal Not Available [facility] [place] [facility] [address], [place], [address], 05/30/2024 22:12:41 05/30/20 24 05/30/2024 CBC (INCL UDES DIFF/ PLT) absolute monocytes 360 cells /uL 200-95 0 normal Not Available [facility] [place] [facility] [address], [place], [address], 05/30/2024 22:12:41 05/30/20 24 05/30/2024 CBC (INCL UDES DIFF/ PLT) absolute eosinophils 111 cells /uL 15-500 normal Not Available [facility] [place] [facility] [address], [place], [address], 05/30/2024 22:12:41 05/30/20 24 05/30/2024 CBC (INCL UDES DIFF/ PLT) absolute basophils 32 cells /uL 0-200 normal Not Available [facility] [place] [facility] [address], [place], [address], 05/30/2024 22:12:41 05/30/20 24 05/30/2024 CBC (INCL UDES DIFF/ PLT) neutrophils 62.6 % normal Not Available [facility] [place] [facility] [address], [place], [address], 05/30/2024 22:12:41 05/30/20 24 05/30/2024 CBC (INCL UDES DIFF/ PLT) lymphocytes 27.9 % normal Not Available [facility] [place] [facility] [address], [place], [address], 05/30/2024 22:12:41 05/30/20 24 05/30/2024 CBC (INCL UDES DIFF/ PLT) monocytes 6.8 % normal Not Available [facility] [place] [facility] [address], [place], [address], 05/30/2024 22:12:41 05/30/20 24 05/30/2024 CBC (INCL UDES DIFF/ PLT) eosinophils 2.1 % normal Not Available [facility] [place] [facility] [address], [place], [address], 05/30/2024 22:12:41 05/30/20 24 05/30/2024 CBC (INCL UDES DIFF/ PLT) basophils 0.6 % normal Not Available [facility] [place] [facility] [address], [place], [address], 05/30/2024 22:12:41 05/30/20 24 05/30/2024 THYRO ID BASIC T4, free 1.0 NG/dL 0.8-1. 8 normal Not Available [facility] [address], [place], [address], 05/30/2024 22:12:41 05/30/20 24 05/30/2024 THYRO ID BASIC TSH 1.68 mIU/L normal Refer ence Range > or = 20 Years 0.40- 4.50 Pregn peg Range s First trime ster 0.26- 2.66 Secon d trime ster 0.55- 2.73 Third trime ster 0.43- 2.91 Not Available [facility] [address], [place], [address], 05/30/2024 22:12:41 05/30/20 24 05/30/2024 INSUL IN insulin 17.3 uIU/m L normal Refer ence Range < or = 18.4 Risk: Optim al < or = 18.4 Moder ate NA High >18.4 Adult cardi ovasc ular event risk categ ory cut point s (opti mal, moder ate, high) are based on Insul in Refer ence Inter haim studi es [facility] 20[facility]. Not Available [facility] [place] [facility] [address] [place], [address], 05/30/2024 22:12:42 05/30/20 24 05/30/2024 HEMOG LOBIN A1C hemoglobin A1C 5.5 %_of_ total _HGB <5.7 normal For the purpo se of scree alma rosa for the prese nce of diabe jennifer: <5.7% Consi stent with the absen ce of diabe jennifer 5.7-6 .4% Consi stent with incre ased risk for diabe jennifer (pred iabet es) > or =6.5% Consi stent with diabe jennifer This assay resul t is consi stent with a decre ased risk of diabe jennifer. Curre ntly, no conse nsus exist s nara ching use of hemog lobin A1c for diagn osis of diabe jennifer in child alex. Accor ding to Ameri can Diabe jennifer Assoc iatio n (ADA) guide lines , hemog lobin A1c <7.0% repre sents optim al contr ol in non-p regna nt diabe tic patie nts. Diffe rent metri cs may apply to speci fic patie nt popul ation s. Stand ards of Medic al Care in Diabe jennifer(A DA). Not Available [facility] [place] [facility] [address] [place], [place], [address], 05/30/2024 22:12:42 07/02/19 25 07/06/2024 THINP REP TIS PAP W/REF L HPV MRNA E6/E7 clinical information: normal None given Not Available [facility] [place] [facility] [address] [place], [place], [address], 07/06/2024 11:16:50 07/02/19 25 07/06/2024 THINP REP TIS PAP W/REF L HPV MRNA E6/E7 LMP: normal NONE GIVEN Not Available [facility] [place] [facility] [address] [place], [place], [address], 07/06/2024 11:16:50 07/02/19 25 07/06/2024 THINP REP TIS PAP W/REF L HPV MRNA E6/E7 prev. Pap: normal NONE GIVEN Not Available [facility] [address], [address], 07/06/2024 11:16:50 07/02/19 25 07/06/2024 THINP REP TIS PAP W/REF L HPV MRNA E6/E7 prev. BX: normal NONE GIVEN Not Available [facility] [place] [facility] [address], [place], [address], 07/06/2024 11:16:50 07/02/19 25 07/06/2024 THINP REP TIS PAP W/REF L HPV MRNA E6/E7 source: normal Cervi x, Endoc ervix Not Available [facility] [address], [address], 07/06/2024 11:16:50 07/02/19 25 07/06/2024 THINP REP TIS PAP W/REF L HPV MRNA E6/E7 statement of adequacy: normal Satis facto ry for evalu ation . Endoc ervic al/tr ansfo rmati on zone compo nent absen t. Not Available [facility] [address], [address], 07/06/2024 11:16:50 07/02/19 25 07/06/2024 THINP REP TIS PAP W/REF L HPV MRNA E6/E7 interpretati on/result: normal Cytol ogy Resul ts: Negat demarcus for intra epith elial lesio n or freddy bolden . Not Available [facility] [place] [facility] [address], [address], 07/06/2024 11:16:50 07/02/19 25 07/06/2024 THINP REP TIS PAP W/REF L HPV MRNA E6/E7 comment: normal This Pap test has been evalu ated with ana giles techn ology . Not Available [facility] [place] [facility] [address], [address], 07/06/2024 11:16:50 07/02/19 25 07/06/2024 THINP REP TIS PAP W/REF L HPV MRNA E6/E7 cytotechnolo gist: normal [facility], CT (ASCP ) CT Scree alma rosa Locat ion: [facility] [address], [place] [address] Slide prepa ratio n perfo rmed at: [facility], [address] [place] [address] CLIA No. [id number] Not Available [facility] [place] [facility] [address], [address], 07/06/2024 11:16:50 07/02/19 25 07/06/2024 THINP REP TIS PAP W/REF L HPV MRNA E6/E7 comment EXPLA NATOR Y NOTE: The Pap is a scree alma rosa test for cervi sebastian cance r. It is not a diagn ostic test and is subje ct to false negat demarcus and false posit demarcus resul ts. It is most relia ble when a satis facto ry sampl e, regul patito obtai kamla, is submi tted with relev ant clini sebastian findi ngs and histo ry, and when the Pap resul t is evalu ated along with histo saul and curre nt clini sebastian infor matio n. Not Available [facility] [place] [facility] [address], [place], [address], 07/06/2024 11:16:50 05/18/20 24 05/17/2024 US, trans vagin al No observ ation record ed. Not Available 2023 10:10:35 Result Notes None recorded. Problems No Known Problems Medical Equipment None Reported. Allergies No known drug allergies Medications Name Sig Start Date Stop Date Status Note LastModified by Organization Details LastModified Time fluconazole 150 mg tablet 05/02 completed Not Available Not Available Not Available benzonatate 100 mg capsule 07/02 completed Not Available Not Available Not Available ibuprofen 600 mg tablet 07/02 completed Not Available Not Available Not Available ondansetron 4 mg disintegrat ing tablet 07/02 completed Not Available Not Available Not Available Dupixent 300 mg/2 mL subcutaneou s syringe active Not Available Not Available No t Available Dupixent 300 mg/2 mL subcutaneou s pen injector active Not Available Not Available Not Available Wegovy 0.25 mg/0.5 mL subcutaneou s pen injector INJECT 0.25 MG EVERY WEEK BY SUBCUTANE OUS ROUTE. active Not Available Not Available No t Available Vitals Date Recorded Body weight Systolic And Diastolic Provider Name and Address Organization Details Last Updated DateTime 07/02/2024 50399.07 g 118/62 mm[Hg] Jessica Govea [facility] 07/02/2024 16:45:32 Date Recorded Body weight Systolic And Diastolic Provider Name and Address Organization Details Last Updated DateTime 05/02/2024 78744.88 g 124/74 mm[Hg] Shantal Borrero [facility] 05/02/2024 13:17:54 Social History None recorded. Functional Status None recorded. Mental Status None recorded. Family History Relationship Description Onset Age of this Age Resolved Age Notes LastModified by Organization Details LastModified Time Mother Malignant neoplasm of breast 64 Stage 1, s/p chemo and radiat ion, had negati ve geneti c testin g Not available 05/02/2024 13:27:42 Maternal Aunt Malignant neoplasm of breast great aunt, does not know detail s Not available 05/02/2024 13:27:42 Maternal Uncle Malignant neoplasm of colon 50 Not available 2023 13:27:58 Notes:No ovarian, uterine or pancreatic cancer Medical History Condition Response Other Y Asthma Y Gynecological History Statement/Question Response Abnormal Pap N Current Control Method None Flow Moderate Date of LMP 04/30/2024 Frequency of Cycle (Q days) 29 Sexually Active? Y STIs/STDs Y Age at Menarche 13 Obstetrics History GPAL:G 0 P 0 0 0 0 Past Encounters Encounter ID Performer Location Encounter Start Date Encounter Closed Date Diagnosis/Indication Diagnosis SNOMED-CT Code Diagnosis ICD10 Code Diagnosis IMO Codes Diagnosis Note [id number] LINCOLN NAVARRO APRN CWO[address] [facility], [address] Replaced by [facility],[address] [place] [phone] 05/02/2024 13:09:31 05/02/2024 13:38:36 Gynecologic examination 85558676 Z01.419 pap deferred, has heavy period. Will come back in a few weeks to do thisSBE/br east awareness Menorrhagia 961001239 N9 2.0 will check pelvic usnplan pending results Failure to lose weight 25086325 R63.8 difficulty losing weight despite exercise and diet changeswil l check labsfam hx of DMRTO in 4-6 weeks for f/u Depression screening 171 019374 Z13.31 PHQ neg [id number] LINCOLN NAVARRO APRN CWO[address] [facility] [address] [place] [address] 07/02/2024 16:43:14 07/02/2024 17:00:09 Screening for malignant neoplasm of cervix 078558864 Z12.4 pap collected Insulin resistance 67285 5000 E88.819 discussed labsfastin g insulin 17.3. discussed insulin resistance and risks related to metabolic syndrome/p re- diabetes/d iabetes. hgb A1c 5.6.,discu ssed management options including metformin and GLP-1. Will try wegovy.pos sible s/e discussedh ealthy diet and exercise reviewedLD L elevated, first line management is lifestyle changes. Will recheck in 3-6 months.RTO in 4 weeks Health Concerns Section Related Observation LastModified by Organization Detai ls LastModified Time None Recorded Concern Status LastModified by Organization Details LastModified Time None Recorded Advance Directives Directive None Recorded Payers Insurance Date Sequence Insurance Name Policy Number Policy Peters Covered Member ID Peters Member ID Guarantor Name 07/06/2024 1 [employer] (INDEMNITY) [id number] Madie Jackson [id number] Kenneth Manuel Notes Date Note Type Note Provider Name and Address Organization Details Recorded Time 05/02/2024 text/html 28 yr old new pt here for annual examdoing wellc/o menorrhagia and every 3 cycles or so she has N/V on the first day of her period.Not on any controlc/o inability to lose weightdoes not have a PCPpap due. 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
[2025-06-10 13:54] VITALS: BMI 34.5
== END 2025-06-05 14:52 | disposition home or self-care (01) ==
LOC: HO.ENCR 14:01
PROVIDERS: PCP Nurse Practitioner Family; Visit Provider Dietitian, Registered
DX: E66.9 Obesity, unspecified (principal)

== ENCOUNTER → 2025-06-05 14:00 | Outpatient (BNVA) | payer OTHER, SELFPAY | PROVIDERS: PCP Nurse Practitioner Family; Visit Provider Dietitian, Registered | DX: E66.9 Obesity, unspecified (principal); Z68.34 Body mass index [BMI] 34.0-34.9, adult; Z71.3 Dietary counseling and surveillance | CPT/HCPCS: 97802 ==